=== PATIENT | female | born 1950 | race Caucasian/White ===

== ENCOUNTER → 2016-12-05 | Outpatient (CLI) | payer MEDICARE, OTHER ==
[2016-12-05 10:02] LABS: HEMOGLOBIN 14.7 gm/dl (12.3-15.3); RED BLOOD COUNT 5.2 M/UL (4.00-5.10)
[2016-12-05 11:03] LABS: BUN/CREATININE RATIO 23 (0-10)
== END ==
LOC: LAB 09:13
PROVIDERS: Nurse Practitioner Family
DX: E04.2 Nontoxic multinodular goiter (principal); R53.83 Other fatigue; E55.9 Vitamin D deficiency, unspecified; E03.9 Hypothyroidism, unspecified
CPT/HCPCS: 10022; 36415; 76536; 80053; 84439; 84443; 85025

== ENCOUNTER → 2016-12-11 | Outpatient (CLI) | payer MEDICARE, OTHER | LOC: EMI 15:44 | DX: M25.561 Pain in right knee (principal); S83.206A Unspecified tear of unspecified meniscus, current injury, right knee, initial encounter; M71.21 Synovial cyst of popliteal space [Baker], right knee; M17.11 Unilateral primary osteoarthritis, right knee | CPT/HCPCS: 73721 ==

== ENCOUNTER 2020-09-19 23:45 | Inpatient (IN) | payer MEDICARE, OTHER ==
[~2020-09-19] VITALS: Ht 162.6 cm; Wt 98.0 kg
[~2020-09-19 23:45] MED LIST: ASPIRIN EC81 MG PO; ATORVASTATIN CA20 MG PO; CLARITHROMYCIN500 MG PO; CLARITIN10 MG PO; CLOPIDOGREL75 MG PO; COLACE 100MG C100 MG PO; GABAPENTIN300 MG PO; LASIX40 MG PO; LOPRESSOR50 MG PO; MEDROL4 MG PO; MYCOSTATIN CREA15 GM TOP; NORVASC5 MG PO; PEPCID20 MG PO; SYMBICORT 16010.2 GM INH; SYNTHROID125 MCG PO; TYLENOL 8 HOUR650 MG PO; VIBRAMYCIN100 MG PO; XOPENEX HFA15 GM INH; ZETIA10 MG PO
[2020-09-20 00:43] LABS: HEMOGLOBIN 15.8 gm/dl (12.3-15.3); RED BLOOD COUNT 5.26 M/UL (4.00-5.10); WHITE BLOOD COUNT 14.7 K/UL (4.5-11.0)
[2020-09-20 01:21] LABS: BUN/CREATININE RATIO 20 (0-10)
[2020-09-20] MEDS ORDERED: ELIQUIS 5 MG TAB5 MG PO (02:45)
[2020-09-20] MEDS ORDERED: XOPENEX1.25 MG/3 INH (02:51)
[2020-09-20] MEDS ORDERED: BENADRYL 25MG C25 MG PO (12:40)
[2020-09-20] MEDS ORDERED: REPATHA SC (12:45)
[2020-09-20 14:42] LABS: BUN/CREATININE RATIO 17 (0-10)
[2020-09-21 04:27] LABS: RED BLOOD COUNT 4.85 M/UL (4.00-5.10); WHITE BLOOD COUNT 16.4 K/UL (4.5-11.0)
[2020-09-21 04:53] LABS: BUN/CREATININE RATIO 17 (0-10)
[2020-09-22 06:50] LABS: RED BLOOD COUNT 4.44 M/UL (4.00-5.10); WHITE BLOOD COUNT 12.8 K/UL (4.5-11.0)
[2020-09-22 07:16] LABS: BUN/CREATININE RATIO 33 (0-10)
[2020-09-23 04:08] LABS: HEMOGLOBIN 13.4 gm/dl (12.3-15.3); RED BLOOD COUNT 4.56 M/UL (4.00-5.10)
[2020-09-23 04:12] LABS: WHITE BLOOD COUNT 18.2 K/UL (4.5-11.0)
[2020-09-23 04:38] LABS: BUN/CREATININE RATIO 38 (0-10)
[2020-09-24 04:00] LABS: HEMOGLOBIN 13.2 gm/dl (12.3-15.3); RED BLOOD COUNT 4.48 M/UL (4.00-5.10); WHITE BLOOD COUNT 22.3 K/UL (4.5-11.0)
[2020-09-24 04:18] LABS: BUN/CREATININE RATIO 37 (0-10)
[2020-09-25 04:24] LABS: HEMOGLOBIN 14.3 gm/dl (12.3-15.3); RED BLOOD COUNT 4.87 M/UL (4.00-5.10); WHITE BLOOD COUNT 19.6 K/UL (4.5-11.0)
[2020-09-25 04:43] LABS: BUN/CREATININE RATIO 35 (0-10)
[2020-09-26 03:19] LABS: RED BLOOD COUNT 4.73 M/UL (4.00-5.10)
[2020-09-26 05:35] LABS: BUN/CREATININE RATIO 36 (0-10)
[2020-09-27 05:50] LABS: HEMOGLOBIN 13.1 gm/dl (12.3-15.3); RED BLOOD COUNT 4.59 M/UL (4.00-5.10); WHITE BLOOD COUNT 19.6 K/UL (4.5-11.0)
[2020-09-27 06:33] LABS: BUN/CREATININE RATIO 38 (0-10)
[2020-09-27] MEDS ORDERED: BUDESONIDE0.5 MG/2 M NEB (18:36)
[2020-09-27] MEDS ORDERED: DECADRON6 MG PO (18:36)
[2020-09-27] MEDS ORDERED: DOXYCYCLINE HY100 MG PO (18:36)
[2020-09-27] MEDS ORDERED: IPRATROPIU0.2 MG/1 M NEB (18:36)
[2020-09-28 05:14] LABS: HEMOGLOBIN 13.9 gm/dl (12.3-15.3); RED BLOOD COUNT 4.78 M/UL (4.00-5.10); WHITE BLOOD COUNT 21.2 K/UL (4.5-11.0)
[2020-09-28 05:34] LABS: BUN/CREATININE RATIO 30 (0-10)
--- NOTE | 2020-09-28 14:26 | NUR ---
SPOKE WITH AT THIS TIME ABOUT PATIENT DISCHARGE. SHE STATES THAT SHE WANTS TO MAKE SURE THAT PATIENT DOES NOT DESAT WHEN SHE AMBULATES. MADE PATIENT AMBULATE AROUND ROOM AT THIS TIME O2 SAT DROPPED LOW 87% ON 3LNC. PATIENT INSTRUCTED TO SIT BACK DOWN AND REST. PATIENT TOLERATED WELL. NO DISTRESS NOTED. O2 SATS QUICKLY IMPROVED ONCE PATIENT STOPPED AMBULATING.
== END 2020-09-28 15:20 | disposition home or self-care (01) | DRG 871 ==
LOC: ER1 23:45 → PROG CARE 09-20 02:32 → CDU 09-20 02:32 → MED SURG 4 09-20 02:32 → PROG CARE 09-20 07:47 → MED SURG 4 09-20 16:40
PROVIDERS: Emergency Medicine; Internal Medicine; Internal Medicine Pulmonary Disease; ADMIT Internal Medicine
PROC: 8E0ZXY6 Isolation (ICD-10-PCS; principal; 2020-09-20)
PROC: XW033E5 Introduction of Remdesivir Anti-infective into Peripheral Vein, Percutaneous Approach, New Technology Group 5 (ICD-10-PCS; 2020-09-20)
PROC: 3E0333Z Introduction of Anti-inflammatory into Peripheral Vein, Percutaneous Approach (ICD-10-PCS; 2020-09-20)
PROC: XW033H5 Introduction of Tocilizumab into Peripheral Vein, Percutaneous Approach, New Technology Group 5 (ICD-10-PCS; 2020-09-20)
PROC: XW13325 Transfusion of Convalescent Plasma (Nonautologous) into Peripheral Vein, Percutaneous Approach, New Technology Group 5 (ICD-10-PCS; 2020-09-21)
PROC: B24BZZZ Ultrasonography of Heart with Aorta (ICD-10-PCS; 2020-09-22)
DX: A41.89 Other specified sepsis (principal); U07.1 COVID-19; J96.21 Acute and chronic respiratory failure with hypoxia; J12.82 Pneumonia due to coronavirus disease 2019; J15.6 Pneumonia due to other Gram-negative bacteria; I50.33 Acute on chronic diastolic (congestive) heart failure; J44.0 Chronic obstructive pulmonary disease with (acute) lower respiratory infection; E87.1 Hypo-osmolality and hyponatremia; I48.20 Chronic atrial fibrillation, unspecified; I25.10 Atherosclerotic heart disease of native coronary artery without angina pectoris; E03.9 Hypothyroidism, unspecified; E66.01 Morbid (severe) obesity due to excess calories; G89.29 Other chronic pain; G47.33 Obstructive sleep apnea (adult) (pediatric); E78.5 Hyperlipidemia, unspecified; G62.9 Polyneuropathy, unspecified; Z79.01 Long term (current) use of anticoagulants; Z68.37 Body mass index [BMI] 37.0-37.9, adult; Z98.51 Tubal ligation status; Z99.81 Dependence on supplemental oxygen; Z79.899 Other long term (current) drug therapy; Z98.890 Other specified postprocedural states
CPT/HCPCS: ECHO; 36415; 36600; 71045; 80048; 80053; 80202; 81001; 82436; 82550; 82553; 82728; 82803; 83605; 83615; 83690; 83735; 83874; 83880; 84100; 84133; 84300; 84439; 84443; 84484; 84550; 85025; 85379; 85610; 86140; 86900; 86901; 86927; 87040; 87081; 87205; 87635; 93005; 93306; 94640; 94664; 94760; 96374; 99285; J1100; J1335; J1940; J2185; J3370; J7030; J7040; J7070

== ENCOUNTER → 2020-10-28 | Outpatient (CLI) | payer MEDICARE, OTHER ==
[~2020-10-28] MED LIST changes: +BENADRYL 25MG C25 MG PO; +BUDESONIDE0.5 MG/2 M NEB; +DECADRON6 MG PO; +DOXYCYCLINE HY100 MG PO; +ELIQUIS 5 MG TAB5 MG PO; +IPRATROPIU0.2 MG/1 M NEB; +REPATHA SC; +XOPENEX1.25 MG/3 INH
== END ==
LOC: HEART 5 15:02
DX: R06.02 Shortness of breath (principal); J98.4 Other disorders of lung
CPT/HCPCS: 71046; 94060; 94729

== ENCOUNTER → 2021-01-04 | Outpatient (CLI) | payer MEDICARE, OTHER | LOC: EXRD 11:17 | DX: M54.5 Low back pain (principal); M48.061 Spinal stenosis, lumbar region without neurogenic claudication; M53.86 Other specified dorsopathies, lumbar region; M99.13 Subluxation complex (vertebral) of lumbar region | CPT/HCPCS: 72100 ==

== ENCOUNTER → 2021-01-31 | Outpatient (CLI) | payer MEDICARE, OTHER | LOC: EXRD 12:53 | DX: S83.209A Unspecified tear of unspecified meniscus, current injury, unspecified knee, initial encounter (principal); M85.88 Other specified disorders of bone density and structure, other site | CPT/HCPCS: 77080 ==

== ENCOUNTER → 2021-09-19 | Outpatient (CLI) | payer MEDICARE, OTHER | LOC: RAD 12:48 | DX: M25.561 Pain in right knee (principal); M25.562 Pain in left knee; M17.0 Bilateral primary osteoarthritis of knee | CPT/HCPCS: 73562 ==

== ENCOUNTER → 2021-12-16 | Outpatient (CLI) | payer MEDICARE, OTHER | LOC: US 14:00 | DX: M79.661 Pain in right lower leg (principal); M79.662 Pain in left lower leg; I73.9 Peripheral vascular disease, unspecified | CPT/HCPCS: 93922; 93925; 93970 ==